=== PATIENT | female | born 1950 | race Caucasian/White ===

== ENCOUNTER 2021-12-16 14:47 | Outpatient (REF) | payer MEDICARE, SELFPAY ==
--- NOTE | 2021-12-16 | PFT_ITS ---
FLOWS: FEV1 116% of predicted at 2.28 L. FVC 111% of predicted at 2.89 L. FEV1 to FVC ratio of 0.79. No bronchodilator response. LUNG VOLUMES: Total lung capacity 109% of predicted at 5.05 L. Residual volume 107% of predicted at 2.21 L. Slow vital capacity 112% of predicted at 2.85 L. Expiratory reserve volume 20% of predicted at 0.11 L. Diffusion capacity is normal. IMPRESSION: No obstructive or restrictive ventilatory defect. No bronchodilator response. Decreased expiratory reserve volume suggests extrathoracic restriction, likely secondary to abdominal obesity. Noam Santana MD AP/MODL / [id number]
== END 2021-12-16 14:48 | disposition home or self-care (01) ==
LOC: HO.RESP 14:47
PROVIDERS: PCP Internal Medicine; Visit Provider Internal Medicine
DX: J98.01 Acute bronchospasm (principal); J68.3 Other acute and subacute respiratory conditions due to chemicals, gases, fumes and vapors; R05.9 Cough, unspecified
CPT/HCPCS: 94060; 94727; 94729; 99202

== ENCOUNTER → 2022-01-13 15:14 | Outpatient (BNVA) | payer MEDICARE, SELFPAY | PROVIDERS: PCP Internal Medicine; Visit Provider Internal Medicine | DX: J68.3 Other acute and subacute respiratory conditions due to chemicals, gases, fumes and vapors (principal); J98.01 Acute bronchospasm | CPT/HCPCS: 99212 ==

== ENCOUNTER 2022-11-13 14:01 | Outpatient (AMB) | payer MEDICARE, SELFPAY ==
--- NOTE | 2022-11-13 14:05 | A.OFFVIS_ITS ---
Intake Vital Signs 11/13/22 14:07 Height 5 ft 1 in Weight 235 lb 14.314 oz BMI 44.6 BP 114/70 Blood Pressure Location Lt radial Pulse 69 Pulse Source Pulse Oximeter Pulse Oximetry (%) 98 Oxygen Delivery Method Room Air Intake Visit Reasons: Sick visit - Cough Fur Glosser Required: No Leather Toggler: Leather Toggler offered & declined Accompanied by: Self / Same As Patient Allergies codeine Allergy (Severe, Verified 11/13/22 14:11) projectial vomiting Medication List - Last Reconciled 11/13/22 by Zabrina Pantoja LPN albuterol sulfate 90 mcg/actuation 2 puffs inhalation Q4-6H PRN apixaban (Eliquis) 5 mg PO BID aspirin (Adult Low Dose Aspirin) 81 mg PO DAILY atorvastatin 10 mg PO DAILY loratadine (Allergy Relief (loratadine)) 10 mg PO DAILY metoprolol tartrate 12.5 mg PO BID HPI Sick visit - Cough HPI Details Madhavi is a very pleasant 72 year old female followed for asthma. She reports ongoing symptoms for the past few years of dry cough that is triggered by talking, laughing or singing as well as environmental allergies. She also reports chest tightness and wheezing with prolonged coughing. She has been using her albuterol up to 4 times per day on a daily basis with significant im provements in symptoms within a few minutes as well as claritin. She also reports being under the care of cardiology, Dr. Moran, for atrial fibrillation which she on eliquis and metoprolol. She denies any chest pain or palpitations. [facility] Medical History Cough due to bronchospasm Reactive airways dysfunction syndrome Social History (Updated 11/13/22 @ 14:13 by Zabrina Pantoja LPN) Patient Tobacco Use Status: Never used Tobacco Review of Systems Const Denies chills, Denies excessive sweating, Denies fever(s), Denies headache(s) and Denies night sweats Eyes Denies dry eyes, Denies irritation and Denies itchy eyes ENT Reports Normal hearing present, Denies headache(s), Denies nasal congestion, Denies nasal discharge and Denies sore throat Card Denies chest pain, Denies chest pain at rest, Denies chest pain with activity, Denies claudication, Denies leg edema, Denies dyspnea, Denies dyspnea on exertion, Denies orthopnea and Denies paroxysmal nocturnal dyspnea Resp Denies chest congestion, Denies excessive phlegm production, Denies pain on inspiration, Denies pain with cough, Denies dyspnea, Denies dyspnea on exertion and Denies stridor Musc Denies myalgias Neuro Reports Normal hearing present and Denies headache(s) Endo Denies excessive sweating John/Lymph Denies lymphadenopathy Aller/Immun Denies itchy eyes and Denies seasonal rhinorrhea Physical Exam Vital Signs: Last Vital Signs Pulse 69 11/13/22 14:07 BP 114/70 11/13/22 14:07 Pulse Ox 98 11/13/22 14:07 Oxygen Delivery Method Room Air 11/13/22 14:07 BMI result Body Mass Index 44.6 Const General: cooperative, healthy appearing, comfortable, no acute distress, well developed and alert Nutritional Appearance: obese Orientation/consciousness: patient oriented x3 Limitations: no limitations HEENT Head: Yes normal to inspection, Yes normocephalic and Yes atraumatic Ears: hearing grossly normal bilaterally and external ears normal Eyes General: appearance normal, both eyes and all related structures Eyelids: Yes eyelids normal Sclerae: sclerae normal EOM: EOMs intact bilaterally Neck Neck: Yes normal visual inspection and Yes no lymphadenopathy Lymphatic: no lymphadenopathy noted Chest Chest palpation & inspection: normal inspection of the chest Resp Other: long expiratory phase with post exhalation cough Effort & Inspection: normal respiratory effort, no audible wheezes, no stridor, not tachypneic, no tripod positioning and no use of accessory muscles Cardio Jugular venous distension: no JVD Rate: regular rate Skin Other: warm, dry General skin exam: no rashes or lesions noted Neuro General: patient oriented x3 Cranial nerves: Yes Normal hearing present Cognition (Neuro): normal cognition Gait exam (Neuro): Normal gait present Extrem General: Yes normal to inspection, Yes capillary refill normal, Yes no clubbing, cyanosis or edema and Yes no pedal edema Psych Appearance: grossly normal and well kempt Speech and movement: Normal speech and movement present and Clear speech present Affect: normal affect Attitude: cooperative Thought process: Normal thought process present Thought content: Normal thought content present Insight: Good insight present (Psych) Judgement: Good judgement present (Psych) Office Procedures Nebulizer Treatment Nebulizer Treatment [id number]/[id number] RX initial, or Nebulizer Subsequent Treatment Office Meds ipratropium-albuterol 0.5 mg-3 mg(2.5 mg base)/3 mL Performing Provider: Dolores Cline NP Administered by: Zabrina Pantoja LPN on 11/13/22 14:42 Dose Route Admin Location Lot Number Expiration Date NDC Answering Service Operator 3 mL inhalation [id number] 03/21/24 [id number] [facility] Assessment & Plan Assessment & Plan (1) Cough due to bronchospasm: Code(s): J98.01 - Acute bronchospasm Plan Madhavi reports ongoing dry cough with intermittent chest tightness and wheezing that has improved with short acting albuterol. Patient coughing throughout visit and post exhalation cough on exam. Coughing resolved with nebulizer treatment. Will empirically trial ICS/LABA. Inhaler technique and oral hygiene reviewed. Advised patient to call office if symptoms are not improving. Since patient with atrial fibrillation, will send in xopenex in place of albuterol. All questions were answered and patient is in agreement of plan. Will follow up with Dr. Brumfield in three months or sooner if needed. Orders: Orders AMB Nebulizer Treatment Today J68.3 - Other acute and subacute respiratory conditions due to chemicals, gases, fumes and vapors, J98.01 - Acute bronchospasm Medications: New fluticasone furoate-vilanterol 100-25 mcg/dose (Breo Ellipta) 1 inh inhalation DAILY 60 ea 3RF levalbuterol tartrate 45 mcg/actuation (Xopenex HFA) 2 puffs inhalation Q4-6H PRN 15 grams 6RF shortness of breath Coding Level of Care Code Est Pt Level 3 (17533) Diagnoses Cough due to bronchospasm J98.01 CPT Codes Nebulizer Treatment - Nebulizer Treatment, initial or subsequent: 19057- Nebulizer/MDI RX initial, or Nebulizer Subsequent Treatment ([id number])
[2022-11-13 14:07] VITALS: BP 114/70; PULSE 69; O2SAT 98; BMI 44.6
== END 2022-11-13 14:54 | disposition home or self-care (01) ==
PROVIDERS: PCP Internal Medicine; Visit Provider Nurse Practitioner Family
DX: J98.01 Acute bronchospasm (principal); J68.3 Other acute and subacute respiratory conditions due to chemicals, gases, fumes and vapors
CPT/HCPCS: 99213

== ENCOUNTER → 2022-11-13 14:01 | Outpatient (BNVA) | payer MEDICARE, SELFPAY | PROVIDERS: PCP Internal Medicine; Visit Provider Nurse Practitioner Family | DX: J98.01 Acute bronchospasm (principal) | CPT/HCPCS: 94640; 99212 ==

== ENCOUNTER 2023-03-03 14:53 | Outpatient (AMB) | payer MEDICARE, SELFPAY ==
--- NOTE | 2023-03-03 15:00 | A.OFFVIS_ITS ---
Intake Vital Signs 03/03/23 15:02 Height 5 ft 1 in Weight 230 lb BMI 43.5 BP 110/60 Blood Pressure Location Lt brachial Position Sitting Pulse 72 Pulse Source Pulse Oximeter Pulse Oximetry (%) 97 Oxygen Delivery Method Room Air Intake Visit Reasons: Cough Intake Note: pt is here for follow up and states that since on Breo and levalbuterol is better but she will cough if she talks too much or perfumes will trigger. Vaccine Key Customer Leader Required: No Allergies codeine Allergy (Severe, Verified 03/03/23 16:26) projectial vomiting Medication List - Last Reconciled 03/03/23 by Jaycob Brumfield MD apixaban (Eliquis) 5 mg PO BID atorvastatin 10 mg PO DAILY flecainide 100 mg PO Q12H fluticasone furoate-vilanterol 100-25 mcg/dose (Breo Ellipta) 1 inh inhalation DAILY levalbuterol tartrate 45 mcg/actuation (Xopenex HFA) 2 puffs inhalation Q4-6H PRN loratadine (Allergy Relief (loratadine)) 10 mg PO DAILY PRN metoprolol tartrate 12.5 mg PO BID Do you need a note to return to daycare/school/sports/work: No HPI Cough HPI Details 72 YEARS OLD VERY PLEASANT FEMALE, COMES TODAY FOR HER ROUTINE FOLLOW- UP. HER PULMONARY FUNCTION TEST HAS BEEN NORMAL. HOWEVER SHE HAS HISTORY OF BOUTS OF COUGH SECONDARY TO HYPERSENSITIVE UPPER AIRWAYS. HER COUGH CAN BE PRECIPITATED BY A VIRAL INFECTION AND ALSO DUE TO INHALATION OFF ANY PERFUMES ARE DUST PARTICLES. SHE WAS SEEN FOR AN ACUTE EXACERBATION OF COUGH BACK IN OCTOBER OF THIS YEAR, AND STARTED ON BREO-100 AND ALSO LEVALBUTEROL P.R.N.. WITH THE USE OF BREO ON A DAILY BASES HER COUGH HAS BEEN DOWN TO MINIMAL. SHE HAS HAD NO ACUTE INFECTION. SHE HAS HAD PAROXYSMAL ATRIAL FIBRILLATION AND IS BEING SCHEDULED FOR ABLATIONS THERAPY. PRIOR TO THAT A CT SCAN OF THE CHEST WAS ORDERED, WHICH WAS PERFORMED AT [facility]. SHE WAS FOUND TO HAVE MULTIPLE PULMONARY NODULES, 5 MM OR LESS IN SIZE. AND SHE HAS BEEN SCHEDULED TO SEE A THORACIC SURGEON [facility], FOR THESE ABNORMALITIES, THE PATIENT WAS THE CONFUSED ABOUT THIS AND DID KNOW WHAT WAS GOING ON. SO I WAS ABLE TO GET THE REPORT OF HER CT SCAN AND EXPLAINED TO HER IN DETAIL. [facility] Medical History (Updated 03/03/23 @ 16:55 by Jaycob Brumfield MD) Pulmonary nodules Reactive airways dysfunction syndrome Cough due to bronchospasm Social History Patient Tobacco Use Status: Never used Tobacco Review of Systems Const All systems reviewed & are unremarkable except as noted in HPI and below Eyes Reports no additional complaints ENT Reports nasal congestion and Reports nasal discharge (Off and on usually in spring season.) Card Denies chest pain and Reports irregular heart rhythm (Periodically) Resp Reports cough GI Reports no additional complaints Reports no additional complaints Musc Reports no additional complaints Skin/Breast Reports system reviewed and no additional complaints, except as documented Neuro Reports no additional complaints Psych Reports no additional complaints Endo Reports no additional complaints Physical Exam Vital Signs: Last Vital Signs Pulse 72 03/03/23 15:02 BP 110/60 03/03/23 15:02 Pulse Ox 97 03/03/23 15:02 Oxygen Delivery Method Room Air 03/03/23 15:02 BMI result Body Mass Index 43.5 Const Other: Grossly overweight, otherwise healthy looking. General: comfortable, no acute distress, alert and awake Orientation/consciousness: patient oriented x3 HEENT Head: Yes normal to inspection General nose exam: No nasal polyps present and No nasal discharge present Face and sinus: Yes sinuses nontender Mouth: oropharynx normal Throat: Yes posterior oropharynx normal Eyes General: appearance normal, both eyes and all related structures Neck Neck: Yes normal visual inspection, Yes no lymphadenopathy, Yes trachea midline and Yes no JVD Thyroid: Thyroid normal Chest Chest palpation & inspection: normal inspection of the chest, normal palpation of entire chest wall and no tenderness Resp Other: Percussion note resonant, breath sounds are slightly distant over the basilar areas. No wheezes rhonchi or crepitations are heard. Cardio Palpation: normal PMI Rate: regular rate Rhythm: regular rhythm Heart sounds: no gallops and no murmurs Peripheral pulses: Peripheral pulses 2+ throughout GI Palpation (GI): Soft to palpation, nontender, No hepatosplenomegaly present and no masses Auscultation: normal bowel sounds Back/Spine/Pelvis Thoracic/Lumbar Spine: thoracic and lumbar spine normal to inspection Skin General skin exam: no rashes or lesions noted Neuro General: patient oriented x3 and no focal motor deficits Cranial nerves: Yes CN's II-XII intact bilaterally Extrem General: Yes normal to inspection, Yes no clubbing, cyanosis or edema and Yes no calf tenderness Psych Appearance: grossly normal and well kempt Speech and movement: Normal speech and movement present Results Reviewed Results Reviewed: CT SCAN OF THE HEART WITH 3D IMAGE AT [facility] ON 01/19/2023 MULTIPLE NONCALCIFIED PULMONARY NODULES WERE DESCRIBED AND A REPEAT THORACIC CT SCAN WAS SUGGESTED Assessment & Plan Assessment & Plan (1) Reactive airways dysfunction syndrome: Comment: REACTIVE AIRWAYS CAUSING BRONCHOSPASM AND COUGH, NOW RELATIVELY UNDER CONTROL WITH THE USE OF BREO. Code(s): J68.3 - Other acute and subacute respiratory conditions due to chemicals, gases, fumes and vapors Plan: CONTINUE BREO 100-251 INHALATION DAILY, MAY USE LEVALBUTEROL 1 OR 2 PUFFS Q 6 HOURS P.R.N. FOR ANY BOUTS OF COUGH OR WHEEZING (2) Cough due to bronchospasm: Comment: IT IS SECONDARY TO REACTIVE AIRWAYS NOTED ABOVE. Code(s): J98.01 - Acute bronchospasm Plan: ABOVE (3) Pulmonary nodules: Comment: CT SCAN OF THE HEART, PICKED UP MULTIPLE PULMONARY NODULES LESS THAN 5 MM IN SIZE. SHE HAS ALREADY BEEN REFERRED TO SEE A THORACIC SURGEON, AND MOST LIKELY SHE NEEDS A HE REGULAR CT SCAN OF THE CHEST. Code(s): R91.8 - Other nonspecific abnormal finding of lung field Plan: ABOVE Coding Level of Care Code Est Pt Level 3 (51049) Diagnoses Reactive airways dysfunction syndrome J68.3 Cough due to bronchospasm J98.01 Pulmonary nodules R91.8
[2023-03-03 15:02] VITALS: BP 110/60; PULSE 72; O2SAT 97; BMI 43.5
== END 2023-03-03 15:49 | disposition home or self-care (01) ==
PROVIDERS: PCP Internal Medicine; Visit Provider Internal Medicine
DX: J68.3 Other acute and subacute respiratory conditions due to chemicals, gases, fumes and vapors (principal); J98.01 Acute bronchospasm; R91.8 Other nonspecific abnormal finding of lung field
CPT/HCPCS: 99213

== ENCOUNTER → 2023-03-03 14:53 | Outpatient (BNVA) | payer MEDICARE, SELFPAY | PROVIDERS: PCP Internal Medicine; Visit Provider Internal Medicine | DX: J68.3 Other acute and subacute respiratory conditions due to chemicals, gases, fumes and vapors (principal); J98.01 Acute bronchospasm; R91.8 Other nonspecific abnormal finding of lung field | CPT/HCPCS: 99212 ==

== ENCOUNTER 2023-05-31 14:28 | Outpatient (AMB) | payer MEDICARE, SELFPAY ==
[2023-05-31 14:32] VITALS: BP 110/62; PULSE 70; O2SAT 97; BMI 41.5
--- NOTE | 2023-05-31 14:32 | MHC.OFFVIS ---
Intake Vital Signs 05/31/23 14:32 Height 5 ft 1 in Weight 219 lb 9.403 oz BMI 41.5 BP 110/62 Blood Pressure Location Rt brachial Position Sitting Pulse 70 Pulse Source Doppler Pulse Oximetry (%) 97 Oxygen Delivery Method Room Air Intake Visit Reasons: Cough Allergies codeine Allergy (Severe, Verified 05/31/23 14:42) projectial vomiting Medication List - Last Reconciled 05/31/23 by Jaycob Brumfield MD albuterol sulfate 90 mcg/actuation 1 inh inhalation QID PRN 30 days apixaban (Eliquis) 5 mg PO BID atorvastatin 10 mg PO DAILY fluticasone furoate-vilanterol 100-25 mcg/dose (Breo Ellipta) 1 inh inhalation DAILY levalbuterol tartrate 45 mcg/actuation (Xopenex HFA) 2 puffs inhalation Q4-6H PRN loratadine (Allergy Relief (loratadine)) 10 mg PO DAILY PRN metoprolol tartrate 12.5 mg PO BID Do you need a note to return to daycare/school/sports/work: No HPI Cough HPI Details Madhavi, 72 years old female is a nonsmoker, she has had cough for the last few years, and is here for follow-up. Since her last visit she was prescribed BREO 100-25 use 1 inhalation daily. This has definitely reduce the amount of cough. But she still gets periods of cough especially if she talks loud or laughs. Then she has to use albuterol 1 inhalation Q 4-6 hours as needed. Because of her paroxysmal atrial fibrillation she was supposed to use levalbuterol, but being back ordered she was not able to get it. She is doing fairly well by using albuterol only 1 puff at a time. Except for intermittent cough she has no other respiratory problem. She can walk at her normal speed. 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 She is also being followed for pulmonary nodules, has not seen any thoracic or other specialist yet. Per recently she did have a CT scan of the chest, of which we do not have the report here. Will try to get it. [facility] Medical History Pulmonary nodules Reactive airways dysfunction syndrome Cough due to bronchospasm Social History Patient Tobacco Use Status: Never used Tobacco Review of Systems Const All systems reviewed & are unremarkable except as noted in HPI and below Eyes Reports no additional complaints ENT Reports nasal congestion and Reports nasal discharge (Off and on usually in spring season.) Card Denies chest pain and Reports irregular heart rhythm (Periodically) Resp Reports cough GI Reports no additional complaints Reports no additional complaints Musc Reports no additional complaints Skin/Breast Reports system reviewed and no additional complaints, except as documented Neuro Reports no additional complaints Psych Reports no additional complaints Endo Reports no additional complaints Physical Exam Vital Signs: Last Vital Signs Pulse 70 05/31/23 14:32 BP 110/62 05/31/23 14:32 Pulse Ox 97 05/31/23 14:32 Oxygen Delivery Method Room Air 05/31/23 14:32 BMI result Body Mass Index 41.5 Const Other: Grossly overweight, otherwise healthy looking. General: comfortable, no acute distress, alert and awake Orientation/consciousness: patient oriented x3 HEENT Head: Yes normal to inspection General nose exam: No nasal polyps present and No nasal discharge present Face and sinus: Yes sinuses nontender Mouth: oropharynx normal Throat: Yes posterior oropharynx normal Eyes General: appearance normal, both eyes and all related structures Neck Neck: Yes normal visual inspection, Yes no lymphadenopathy, Yes trachea midline and Yes no JVD Thyroid: Thyroid normal Chest Chest palpation & inspection: normal inspection of the chest, normal palpation of entire chest wall and no tenderness Resp Other: Percussion note resonant, breath sounds are slightly distant over the basilar areas. No wheezes rhonchi or crepitations are heard. Cardio Palpation: normal PMI Rate: regular rate Rhythm: regular rhythm Heart sounds: no gallops and no murmurs Peripheral pulses: Peripheral pulses 2+ throughout GI Palpation (GI): Soft to palpation, nontender, No hepatosplenomegaly present and no masses Auscultation: normal bowel sounds Back/Spine/Pelvis Thoracic/Lumbar Spine: thoracic and lumbar spine normal to inspection Skin General skin exam: no rashes or lesions noted Neuro General: patient oriented x3 and no focal motor deficits Cranial nerves: Yes CN's II-XII intact bilaterally Extrem General: Yes normal to inspection, Yes no clubbing, cyanosis or edema and Yes no calf tenderness Psych Appearance: grossly normal and well kempt Speech and movement: Normal speech and movement present Assessment & Plan Assessment & Plan (1) Cough due to bronchospasm: Comment: SHE HAS COUGH SECONDARY TO REACTIVE AIRWAYS . IT IS SIGNIFICANTLY IMPROVED WITH THE USE OF BREO ONCE A DAY, BUT NOT COMPLETELY RESOLVED. Code(s): J98.01 - Acute bronchospasm Plan: CHANGE BREO TO 200-251 INHALATION DAILY. CONTINUE TO USE ALBUTEROL HFA 1 PUFF Q 4-6 HOURS P.R.N. FOR PERSISTENT BOUTS OF COUGH. .ALSO USE COUGH DROPS NEEDED (2) Reactive airways dysfunction syndrome: Comment: REACTIVE AIRWAYS CAUSING BRONCHOSPASM AND COUGH, NOW RELATIVELY UNDER CONTROL WITH THE USE OF BREO. Code(s): J68.3 - Other acute and subacute respiratory conditions due to chemicals, gases, fumes and vapors Plan: CONTINUE BREO-201 INHALATION DAILY AND ALBUTEROL HFA 1 OR 2 PUFFS Q 4-6 HOURS P.R.N. (3) Pulmonary nodules: Comment: CT SCAN OF THE HEART, PICKED UP MULTIPLE PULMONARY NODULES LESS THAN 5 MM IN SIZE. SHE HAS NOT SEEN ANY THORACIC SURGEON YET AT [facility]. SHE IS A NONSMOKER SO IS A LOW RISK CASE FOR LUNG CANCER. RECENTLY HAD A CT SCAN OF THE ABDOMEN AND CHEST, ORDERED BY HER [employer] CONSULTANT . SHE WOULD LIKE ME TO REVIEW THE REPORT, AND I WILL TRY TO GET THE REPORT FROM [facility]. Code(s): R91.8 - Other nonspecific abnormal finding of lung field Plan: ABOVE Coding Level of Care Code Est Pt Level 3 (51746) Diagnoses Cough due to bronchospasm J98.01 Reactive airways dysfunction syndrome J68.3 Pulmonary nodules R91.8
== END 2023-05-31 14:54 | disposition home or self-care (01) ==
PROVIDERS: PCP Internal Medicine; Visit Provider Internal Medicine
DX: J98.01 Acute bronchospasm (principal); J68.3 Other acute and subacute respiratory conditions due to chemicals, gases, fumes and vapors; R91.8 Other nonspecific abnormal finding of lung field
CPT/HCPCS: 99213

== ENCOUNTER → 2023-05-31 14:28 | Outpatient (BNVA) | payer MEDICARE, SELFPAY | PROVIDERS: PCP Internal Medicine; Visit Provider Internal Medicine | DX: J98.01 Acute bronchospasm (principal); J68.3 Other acute and subacute respiratory conditions due to chemicals, gases, fumes and vapors; R91.8 Other nonspecific abnormal finding of lung field | CPT/HCPCS: 99212 ==

== ENCOUNTER 2023-12-22 14:19 | Outpatient (AMB) | payer MEDICARE, SELFPAY ==
[2023-12-22 14:28] VITALS: BP 122/68; PULSE 70; O2SAT 96; BMI 42.9
--- NOTE | 2023-12-22 14:28 | MHC.OFFVIS ---
Vital Signs 12/22/23 14:28 Height 5 ft 1 in Weight 227 lb 1.218 oz BMI 42.9 BP 122/68 Blood Pressure Location Lt brachial Position Sitting Pulse 70 Pulse Source Pulse Oximeter Pulse Oximetry (%) 96 Oxygen Delivery Method Room Air Intake Visit Reasons: cough Intake Note: pt is here for follow up and states she is still coughing and wheezing and worse the past few weeks. Family Living Educator Required: No Allergies codeine Allergy (Severe, Verified 12/22/23 14:39) projectial vomiting Medication List - Last Reconciled 12/22/23 by Jaycob Brumfield MD albuterol sulfate 90 mcg/actuation 1 inh inhalation QID PRN 30 days alendronate (Fosamax) 70 mg PO QWEEK atorvastatin 10 mg PO DAILY Breo Ellipta 200-25 mcg/dose (fluticasone furoate-vilanterol) 1 inh inhalation Q24H 30 days NS Do you need a note to return to daycare/school/sports/work: No HPI HPI cough: Details: 73 YEARS OLD VERY PLEASANT FEMALE WHO IS MORBIDLY OBESE, IS HERE FOR FOLLOW-UP FOR HER REACTIVE AIRWAYS DISORDER. WITH THE USE OF BREO 200 -25 HER COUGH WAS DEFINITELY MUCH BETTER. HOWEVER IN JULY OR EARLY AUGUST SHE HAD COVID INFECTION, AND AFTER THAT SHE STARTED HAVING MUCH INCREASED COUGH. SHE NEEDED TO USE BENZONATATE CAPSULES, AND INCREASED THE BREO STRENGTH TO 200-25 NOW A FEW MONTHS LATER HER COUGH IS COMING UNDER CONTROL. SHE STILL NEEDS TO USE ALBUTEROL 1 INHALATION ABOUT 3 TIMES A DAY. THE PATIENT REMAINS GROSSLY OVERWEIGHT THOUGH SHE HAS LOST A FEW LB IN THE LAST 6 MONTHS. SHE IS CLAIMS THAT SHE SLEEPS VERY GOOD THROUGHOUT THE NIGHT WITH AWAKENING ONLY ONE TIME DURING THE NIGHT . THE CARDIOLOGY OFFICE HAS SCHEDULED HER FOR HOME-BASED SLEEP STUDY. [facility] Medical History Pulmonary nodules Reactive airways dysfunction syndrome Cough due to bronchospasm Social History Patient Tobacco Use Status: Never used Tobacco Review of Systems Const All systems reviewed & are unremarkable except as noted in HPI and below Eyes Reports no additional complaints ENT Reports nasal congestion and Reports nasal discharge (Off and on usually in spring season.) Card Denies chest pain and Reports irregular heart rhythm (Periodically) Resp Reports cough GI Reports no additional complaints Reports no additional complaints Musc Reports no additional complaints Skin/Breast Reports system reviewed and no additional complaints, except as documented Neuro Reports no additional complaints Psych Reports no additional complaints Endo Reports no additional complaints Physical Exam Vital Signs: Last Vital Signs Pulse 70 12/22/23 14:28 BP 122/68 12/22/23 14:28 Pulse Ox 96 12/22/23 14:28 Oxygen Delivery Method Room Air 12/22/23 14:28 BMI result Body Mass Index 42.9 Const Other: Grossly overweight, otherwise healthy looking. General: comfortable, no acute distress, alert and awake Orientation/consciousness: patient oriented x3 HEENT Head: Yes normal to inspection General nose exam: No nasal polyps present and No nasal discharge present Face and sinus: Yes sinuses nontender Mouth: oropharynx abnormals (OROPHARYNX IS SOMEWHAT CROWDED, MALLAMPATI CLASS 3) Throat: Yes posterior oropharynx normal Eyes General: appearance normal, both eyes and all related structures Neck Neck: Yes normal visual inspection, Yes no lymphadenopathy, Yes trachea midline and Yes no JVD Thyroid: Thyroid normal Chest Chest palpation & inspection: normal inspection of the chest, normal palpation of entire chest wall and no tenderness Resp Other: Percussion note resonant, breath sounds are slightly distant over the basilar areas. No wheezes rhonchi or crepitations are heard. Cardio Palpation: normal PMI Rate: regular rate Rhythm: regular rhythm Heart sounds: no gallops and no murmurs Peripheral pulses: Peripheral pulses 2+ throughout GI Palpation (GI): Soft to palpation, nontender, No hepatosplenomegaly present and no masses Auscultation: normal bowel sounds Back/Spine/Pelvis Thoracic/Lumbar Spine: thoracic and lumbar spine normal to inspection Skin General skin exam: no rashes or lesions noted Neuro General: patient oriented x3 and no focal motor deficits Cranial nerves: Yes CN's II-XII intact bilaterally Extrem General: Yes normal to inspection, Yes no clubbing, cyanosis or edema and Yes no calf tenderness Psych Appearance: grossly normal and well kempt Speech and movement: Normal speech and movement present Assessment & Plan Assessment & Plan (1) Reactive airways dysfunction syndrome: Comment: REACTIVE AIRWAYS CAUSING BRONCHOSPASM AND COUGH, WITH EXACERBATION OF HER COUGH AFTER COVID INFECTION A FEW MONTHS AGO. Code(s): J68.3 - Other acute and subacute respiratory conditions due to chemicals, gases, fumes and vapors Category: Medical Plan: CONTINUE TO USE BREO 200-251 INHALATION DAILY CONTINUE ALBUTEROL HFA ONLY 1 PUFF Q 4-6 HOURS P.R.N. THERE IS BRONCHOSPASM OR PERSISTENT COUGH. MAY USE COUGH DROPS OFTEN NEEDED. (2) Cough due to bronchospasm: Comment: SHE HAS COUGH SECONDARY TO REACTIVE AIRWAYS . IT IS SIGNIFICANTLY IMPROVED WITH THE USE OF BREO ONCE A DAY, BUT HAS TENDENCY TO FLARE UP, AFTER ANY UPPER RESPIRATORY INFECTION. Code(s): J98.01 - Acute bronchospasm Category: Medical Plan: TREATMENT UNDER REACTIVE AIRWAYS DYSFUNCTION (3) Pulmonary nodules: Comment: CT SCAN OF THE HEART, PICKED UP MULTIPLE PULMONARY NODULES LESS THAN 5 MM IN SIZE. SHE HAS NOT SEEN ANY THORACIC SURGEON YET AT [facility]. SHE IS A NONSMOKER SO IS A LOW RISK CASE FOR LUNG CANCER. RECENTLY HAD A CT SCAN OF THE ABDOMEN AND CHEST, ORDERED BY HER DRY COLOR TESTER . SHE WOULD LIKE ME TO REVIEW THE REPORT, AND I WILL TRY TO GET THE REPORT FROM [facility]. Code(s): R91.8 - Other nonspecific abnormal finding of lung field Category: Medical Plan: SHE DOES HAVE MULTIPLE PULMONARY NODULES BUT ALL BELOW 5 MM IN SIZE. SHE IS A NONSMOKER, SHE HAS ONLY AVERAGE RISK, AND DOES NOT NEED TO HAVE YEARLY SCREENING Coding Level of Care Code Est Pt Level 3 (28892) Diagnoses Reactive airways dysfunction syndrome J68.3 Cough due to bronchospasm J98.01 Pulmonary nodules R91.8
== END 2023-12-22 14:53 | disposition home or self-care (01) ==
PROVIDERS: PCP Internal Medicine; Visit Provider Internal Medicine
DX: J68.3 Other acute and subacute respiratory conditions due to chemicals, gases, fumes and vapors (principal); J98.01 Acute bronchospasm; R91.8 Other nonspecific abnormal finding of lung field
CPT/HCPCS: 99213

== ENCOUNTER → 2023-12-22 14:19 | Outpatient (BNVA) | payer MEDICARE, SELFPAY | PROVIDERS: PCP Internal Medicine; Visit Provider Internal Medicine | DX: J68.3 Other acute and subacute respiratory conditions due to chemicals, gases, fumes and vapors (principal); J98.01 Acute bronchospasm; R91.8 Other nonspecific abnormal finding of lung field | CPT/HCPCS: 99212 ==

== ENCOUNTER 2024-04-25 14:30 | Outpatient (AMB) | payer MEDICARE, SELFPAY ==
--- OUTSIDE RECORDS SUMMARY | 2024-04-25 14:34 | XMS_ITS | Clinical Summary ---
Author Organization [facility] Address [address] [place] [address] Phone Care Team Providers Care Meter Shop Supervisor Name Role Phone Ponce Santos MD Primary Care Provider [phone] Allergies Active Allergy Reactions Criticality Noted Date Comments Codeine 01/30/2008 Hydrocodone-Acetamino phen Medium 11/12/2014 Other Reaction(s): OTHER Room spins excessive dizzyness Naproxen 07/15/2009 Other Reaction(s): OTHER dizzy Oxycodone-Acetaminoph en Nausea And Vomiting 12/17/2004 Oxycodone-Aspirin Nausea And Vomiting 5 Procaine Nausea And Vomiting Medium 05/08/2013 Medications Medication Sig Dispensed Refills Start Date End Date Status albuterol HFA (PROAIR HFA ; PROVENTIL HFA ; VENTOLIN HFA) 90 mcg/actuation inhaler Inhale 2 Puffs into the lungs every 4 hours as needed. Active atorvastatin (LIPITOR) 10 mg tablet Take 1 Tablet by mouth daily. 12/20/2023 Active BIOTIN ORAL Take by mouth daily. Active calcium carbonate-vitamin D3 600 mg-20 mcg (800 unit) tablet Take by mouth daily. Active dilTIAZem CD (CARDIZEM CD) 120 mg 24 hr capsule TAKE ONE CAPSULE BY MOUTH EVERY DAY 01/20/2024 Active fluticasone furoate-vilanteroL (BREO ELLIPTA) 200-25 mcg/dose inhaler Inhale into the lungs. 10/29/2023 Active magnesium oxide (MAG-OX) 400 mg (241.3 elemental magnesium) tablet Take 0.5 Tablets by mouth daily. Active nirmatrelvir-ritonav ir (Paxlovid) 150-100 mg tablet therapy pack Take 1 Package by mouth See Admin Instructions. 11/17/2023 Active vitamin E, dl, acetate, 90 mg (200 unit) capsule 1 tab daily Active ergocalciferol, vitamin D2, (VITAMIN D2 ORAL) VITAMIN D OR: Take by mouth daily. Active zinc gluconate 100 mg tablet Zinc 100 MG Tab: Take by mouth. 10/29/2023 Active alendronate (FOSAMAX) 70 mg tablet Take 1 tablet (70 mg total) by mouth every 7 (seven) days. Take in the morning with a full glass of water, on an empty stomach, and do not take anything else by mouth or lie down for the next 30 min. 12 tablet 03/07/2024 Active Active Problems Problem Noted Date Diagnosed Date COVID 11/16/2023 Overview (02/22/2024): Covid + 11/16/23 Reactive airway disease 04/30/2023 Osteoporosis 10/15/2022 Paroxysmal atrial fibrillation 02/10/2022 Overview (02/22/2024): Paroxysmal atrial fibrillation. Prolonged episodes of poorly tolerated atrial fibrillation. Started on flecainide and diltiazem. Anticoagulated with Eliquis. [id number] score of 2 for female and age. Last Assessment & Plan: Overall Madhavi is doing fairly well with a modest atrial fibrillation burden is markedly reduced by flecainide but not eliminated completely we had a long discussion regarding pros and cons of ablation versus continued medications. She does not want to progress to permanent atrial fibrillation given the aortic stenosis and we ultimately decided to proceed with pulmonary vein isolation using cryoballoon ablation. I did review the procedure with her along with the risks and benefits in detail. We decided to continue with her current medicines. At the time of the ablation I will stop the flecainide and then and during follow-up visits we will decide whether it safe to stop the anticoagulation based on her [id number] score and assessment of whether she is having any atrial fibrillation. Aortic stenosis 08/15/2021 Overview (02/22/2024): Last Assessment & Plan: Stable aortic stenosis moderate by echocardiogram. No symptoms clearly attributable. We will continue to monitor with echocardiography. Mild concentric left ventricular hypertrophy (LV H) 08/15/2021 Hypercholesteremia 07/24/2021 Adenomatous colon polyp 05/08/2013 Obesity 07/07/2007 Lumbago 02/01/2006 Encounters Date Type Department Care Team Description 01/28/2024 Telephone [facility] [address] [place] [address] Maritza Nevarez MA Medicare Annual Wellness Visit Subsequent (AWV DUE after 07/23/2023) from Last 3 Months Immunizations Name Administration Dates Next Due Influenza Quadravalent, MDCK , 0.5ml, with preservative (Flucelvax) 6mo and older 02/05/2017 Influenza trivalent, 0.5mL ( Fluad) 65yo and older 01/11/2021,12/13/2019,12/30/2017,01/19,01/24/2015,01/11/2014,01/12/2013 ,01/13/2012,01/05/2011 Influenza trivalent, 0.5mL, preservative free (Fluarix; FluLaval; Fluzone) ages 6mo and older (Afluria) 3 years and older 01/12/2019 Influenza, Unspecified 01/27/2023,01/11/2021 [employer] SARS-CoV-2 COVID-19, mRNA, LNP-S, preservative free 12/29/2022 Pneumococcal conjugate 13 va lent (Prevnar 13, PCV13) 2mo and older 01/20/2016 Pneumococcal polysaccharide 23 valent (Pneumovax 23) 2yo and older 02/16/2017 TD, Adsorbed, Preservative Free 01/08/2004 Td Tetanus diptheria (Tdvax) 7yo and older 01/08/2004 Tdap Tetanus diptheria acell ular pertussis (Boostrix; Adacel) 7yo and older 10/29/2023,09/15/2010 Zoster Live 02/24/2016 Zoster recombinant (Shingrix ) 19yo and older 12/03/2020,10/01/2020 Surgical History Surgery Date Site/Laterality Comments OTHER SURGICAL HISTORY PROCEDURE: [place] LIG/TRNSXJ FLP TUBE ABDL/VAG APPR UNI/BI APPENDECTOMY 01/25/08 PROCEDURE: LAPAROSCOPIC APPENDECTOMY; COMMENT: [facility], Dr. Trevor Hernandez COLONOSCOPY 01/16/08 PROCEDURE: HISTORICAL COLONOSCOPY; COMMENT: adenoma and tics; repeat in five years COLONOSCOPY 05/08/13 PROCEDURE: [place] COLONOSCOPY STOMA DX INCLUDING COLLJ SPEC SPX; COMMENT: tics; repeat in ten yrs Medical History Medical History Date Comments Lumbago 02/01/2006 DX:Lumbago Personal history of malignan t neoplasm of large intestine DX:Personal history of malig nant neoplasm of large intestine; COMMENT: colon polyp---pt states she never had colon cancer, i couldnt change it to no Osteoporosis 10/15/2022 DX:Osteoporosis History of COVID-19 07/30/2022 DX:History o f COVID-19 Reactive airway disease 04/30/2023 Family History Medical History Relation Name Comments Breast cancer Aunt m CABG Brother 1 Coronary artery disease Brother 1 secondary to sepsis following operation Diabetes Father Other: BRAIN CANCER Other BROTHER OF Colon cancer Neg Hx Relation Name Status Comments Aunt m Brother 1 (Age 64) a nurse, o bsessive compulsive, after CABG Brother 2 Alive 10 yrs younger than pt, they are not close. Brother 3 (Age 44) of br ain tumor. 1994 Father (Age 60s) Parkinson 's, & diabetes 1995 Mother Alive since mid with family deaths, mentally ill Other Social History Tobacco Use Types Packs/Day Years Used Date Smoking Tobacco: Never Smokeless Tobacco: Never Alcohol Use Standard Drinks/Week Comments Yes 0 (1 standard drink = 0.6 oz pur e alcohol) Sex and Gender Information Value Date Recorded Sex Assigned at Not on file Gender Identity Not on file Sexual Orientation Not on file Obstetrics History Last Filed Vital Signs Vital Sign Reading Time Taken Comments Blood Pressure 115/66 10/29/2023 2:33 PM EDT aut o Pulse 73 10/29/2023 2:33 PM EDT Temperature - - Respiratory Rate - - Oxygen Saturation - - Inhaled Oxygen Concentration - - Weight 103 kg (226 lb 3.2 oz) 10/29/2023 2:33 PM EDT Height 154.9 cm (5' 1 ) 10/29/2023 2:33 PM EDT Body Mass Index 42.74 10/29/2023 2:33 PM EDT Plan of Treatment Upcoming Encounters Date Type Department Care Team (Late st Contact Info) Description 04/29/2024 12:30 PM EST Appointment Radiology Department [address] [phone] 05/01/2024 2:30 PM EST Office Visit Internal Medicine - [address] [address] Ponce Santos MD [address] [place] [phone] 09/11/2024 1:30 PM EDT Ancillary Procedure [facility] - [facility] [address] [facility] [address] [place] [address] Health Maintenance Due Date Last Done Comments RSV Immunization Patients 60+ Years Old (1 - Risk 60-74 years 1-dose series) 2010 Depression Screening 02/28/2022 Falls Risk Assessment 02/28/2022 Medicare Annual Wellness Visit 02/28/2022 Social Influencers of Health Screening 02/28/2022 COVID-19 Vaccine ( season) 2023 12/29/2022, 06/24/2021, 01/28/2021, Additional history exists Influenza Vaccine (#1) 2023 , 01/11/2021, 01/11/2021, Additional history exists Breast Cancer Screening 04/03/2025 04/03/19 24, 03/28/2022, 03/27/2021, Additional history exists Colorectal Cancer Screening: Colonoscopy 11/05/2025 11/05/2020 Cholesterol Screening (Lipid Panel) 10/28/2028 10/29/2023, 10/29/2023 Osteoporosis Screening (Bone Density Screening) 10/15/2032 10/15/2022 DTaP,Tdap,and Td Vaccines (4 - Td or Tdap) 10/28/2033 10/29/2023, 09/15/2010, 01/08/2004, Additional history exists Hepatitis C Screening Completed 03/17/2001 Pneumococcal Vaccine: 65+ Years Completed 02/16/2017, 01/20/2016 Zoster Vaccines Completed 12/03/2020, 09/19, 02/24/2016 HIB Vaccines Aged Out No longer eligi ble based on patient's age to complete this topic HPV Vaccines Aged Out No longer eligi ble based on patient's age to complete this topic Hepatitis A Vaccines Aged Out No long er eligible based on patient's age to complete this topic Hepatitis B Vaccines Aged Out No long er eligible based on patient's age to complete this topic IPV Vaccines Aged Out No longer eligi ble based on patient's age to complete this topic MMR Vaccines Aged Out No longer eligi ble based on patient's age to complete this topic Meningococcal ACWY Vaccine Aged Out N o longer eligible based on patient's age to complete this topic RSV Immunization Patients Under 20 months Aged Out No longer eligible based on patient's age to complete this topic Varicella Vaccines Aged Out No longer eligible based on patient's age to complete this topic Procedures Procedure Name Priority Date/Time Associated Diagnosis Comments LIPID PANEL Routine 10/29/2023 SCREENING MAMMOGRAPHY BI 2-VIEW BREAST INC CAD Routine 04/03/2023 1:07 PM EST Encounter for screening mammogram for malignant neoplasm of breast DXA BONE DENSITY STUDY 1+ SITS AXIAL SKEL Routine 10/15/2022 2:37 PM EDT Encounter for screening for osteoporosis COLONOSCOPY Routine 11/05/2020 HEPATITIS C SCREENING Routine 03/17/2001 from Last 3 Months or Most Recently Relevant to Health Maintenance Results * (ABNORMAL) Lipid panel (10/29/2023) LDL/HDL Ratio 2 0 - 4 Triglycerides 144 0 - 150 mg/dL Cholesterol 192 0 - 200 mg/dL HDL 89(A) 40 - 75 mg/dL LDL Cholesterol 75 0 - 100 mg/dL Blood Venous blood specimen / Unknown Historical Provider LAB BLOOD ORDERAB LES * SCREENING MAMMOGRAPHY BI 2-VIEW BREAST INC CAD (04/03/2023 1:07 PM EST) Anatomical Region Laterality Modality Radiographic Dana ging 03/28/2022 12:0 3 PM EST Narrative 04/03/2023 4:43 PM EST This is a summary report. The complete report is available in the patient's medical record. If you cannot access the medical record, please contact the sending organization for a detailed fax or copy. Full field digital screening tomosynthesis mammography, reviewed with CAD and compared to previous. The breasts are composed of fatty and fibroglandular tissue. ??No suspicious mass, architectural distortion or suspicious calcifications are identified. IMPRESSION: : No mammographic evidence of malignancy. BIRADS 1-Negative; N. 5 year breast cancer risk assessment 1.2 % Lifetime breast cancer risk assessment 3.0 % Breast cancer risk category Low (<15%) Procedure Note Karina Brennan MD - 11/08/2023 This is a summary report. The complete report is available in thepatient's medical record. If you cannot access the medical record, pleasecontact the sending organization for a detailed fax or copy. Full field digital screening tomosynthesis mammography, reviewed with CADand compared to previous. The breasts are composed of fatty andfibroglandular tissue. No suspicious mass, architectural distortion orsuspicious calcifications are identified. IMPRESSION: : No mammographic evidence of malignancy. BIRADS 1-Negative; N. 5 year breast cancer risk assessment 1.2 % Lifetime breast cancer risk assessment 3.0 % Breast cancer risk category Low (<15%) Cristina Langley DO IMG XR PROCEDURE S * DXA BONE DENSITY STUDY 1+ SITS AXIAL SKEL (10/15/2022 2:37 PM EDT) Anatomical Region Laterality Modality Bone Densitometr y 07/22/2022 2:41 PM EDT Narrative 10/15/2022 4:29 PM EDT BONE DENSITY SCAN (DEXA): FINDINGS: Lumbar Spine T-score is 0.1. ?? (SD relative to 20-29 y/o adult) Z-score is 2.3. ??(SD relative to age matched peers) This is considered normal by WHO criteria. Left Hip T-score is -2.5. Z-score is -0.6. This is considered osteoporosis by WHO criteria. Comparison exam(s): 02/24/2016. ??No statistically significant change in bone mineral density. IMPRESSION: IMPRESSION: ?? Osteoporosis by WHO criteria. The [facility] Department of Internal Medicine recommends using National Osteoporosis Foundation (NOF) guidelines in treatment decisions related to osteoporosis. NOF guidelines suggest considering treatment for postmenopausal women and men aged 50 or older presenting with the following: History of hip or vertebral fracture. T-score = -2.5 (DXA) at the femoral neck, total hip, or spine, after appropriate evaluation to exclude secondary causes. Low bone mass (T-score between -1.0 and -2.5 at the femoral neck or spine) AND a 10-year probability of a hip fracture = 3% OR a 10-year probability of a major osteoporosis-related fracture = 20% based on the [place]-adapted WHO algorithm Please note that all treatment decisions require clinical judgment and consideration of individual patient factors, including patient preferences, co-morbidities, previous drug use, risk factors not captured in the FRAX model (e.g., frailty, falls, vitamin D deficiency, increased bone turnover, interval significant decline in bone density) and possible under- or over-estimation of fracture risk by FRAX. Optional alternative screening schedule based on juan Muñoz., [facility] April 09, 2011 for patients with osteopenia (based on hip BMD T-score) is as follows: * ??advanced osteopenia (T scores -2.00 to -2.49), BMD testing every year * ??moderate osteopenia (T scores -1.50 to -1.99), BMD testing every 5 years mild osteopenia or normal BMD (T scores -1.50 and higher), BMD testing every 15 years Procedure Note Lo Loredo MD - 04/27/2023 BONE DENSITY SCAN (DEXA): FINDINGS: Lumbar Spine T-score is 0.1. (SD relative to 20-29 y/o adult) Z-score is 2.3. (SD relative to age matched peers) This is considered normal by WHO criteria. Left Hip T-score is -2.5. Z-score is -0.6. This is considered osteoporosis by WHO criteria. Comparison exam(s): 02/24/2016. No statistically significant change inbone mineral density. IMPRESSION: IMPRESSION: Osteoporosis by WHO criteria. The [facility] Department of Internal Medicine recommendsusing National Osteoporosis Foundation (NOF) guidelines in treatment decisions related toosteoporosis. NOF guidelines suggest considering treatment for postmenopausal women and menaged 50 or older presenting with the following: History of hip or vertebral fracture. T-score = -2.5 (DXA) at the femoral neck, total hip, or spine, afterappropriate evaluation to exclude secondary causes. Low bone mass (T-score between -1.0 and -2.5 at the femoral neck or spine)AND a 10-year probability of a hip fracture = 3% OR a 10-year probability of a majorosteoporosis-related fracture = 20% based on the [place]-adapted WHO algorithm Please note that all treatment decisions require clinical judgment andconsideration of individual patient factors, including patient preferences, co- morbidities,previous drug use, risk factors not captured in the FRAX model (e.g., frailty, falls, vitaminD deficiency, increased bone turnover, interval significant decline in bone density) andpossible under- or over-estimation of fracture risk by FRAX. Optional alternative screening schedule based on [facility]oz., [facility] for patients with osteopenia (based on hip BMD T-score) is as follows: * advanced osteopenia (T scores -2.00 to -2.49), BMD testing every year * moderate osteopenia (T scores -1.50 to -1.99), BMD testing every 5years mild osteopenia or normal BMD (T scores -1.50 and higher), BMD testingevery 15 years Kelley Gupta NP IMG DXA PROCEDURES * Colonoscopy (11/05/2020) Colonoscopy Abstracted, No interpretation Anatomical Region Laterality Modality Other Historical Provider MD PAULA Feliciano * Hepatitis C Screening (03/17/2001) Hepatitis C Screening Abstracted Historical Provider MD PAULA Feliciano from Last 3 Months or Most Recently Relevant to Health Maintenance Advance Directives Documents on File Type Date Recorded Patient Coach Builder Expl anation Health Care Decision (hx) 01/19/2023 HE ALTH CARE PROXY Health Care Decision (hx) 01/19/2023 HE ALTH CARE PROXY Health Care Decision (hx) 01/19/2023 HE ALTH CARE PROXY Health Care Decision (hx) 01/19/2023 HE ALTH CARE PROXY Health Care Decision (hx) 01/19/2023 HE ALTH CARE PROXY Health Care Decision (hx) 01/19/2023 HE ALTH CARE PROXY Care Teams Meter Shop Supervisor Relationship Specialty Start Date End Date Ponce Santos MD PCP - General Internal Medicine 04/09/20
[2024-04-25 14:35] VITALS: BP 118/60; PULSE 75; O2SAT 97; BMI 42.7
--- NOTE | 2024-04-25 14:35 | MHC.OFFVIS ---
Vital Signs 04/25/24 14:35 Height 5 ft 1 in Weight 225 lb 15.581 oz BMI 42.7 BP 118/60 Blood Pressure Location Lt brachial Position Sitting Pulse 75 Pulse Source Pulse Oximeter Pulse Oximetry (%) 97 Oxygen Delivery Method Room Air Intake Visit Reasons: Cough Intake Note: pt is here for follow up and states she cough is about the same, cold weather, and bending down, she does have humidifier. 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 SO WHEN SHE IS TALKING SHE GETS MORE FREQUENT BOUTS OF COUGH. SHE ENDS UP USING ALBUTEROL ABOUT ONCE OR TWICE A DAY. SHE CONTINUES TO USE BREO 200-251 INHALATION DAILY. WITHOUT USING BREO SHE CAN NOT EVEN FUNCTION, BECAUSE COUGH GETS MUCH WORSE. IT IS INTERESTING THAT SHE IS A [employer]STILLO SO WHEN SHE SINGS SHE DOES NOT HAVE MUCH COUGH WHEN SHE JUST TALKS. COLD AIR IS A BIG TRIGGER FOR HER. [facility] Medical History Pulmonary nodules Reactive airways dysfunction syndrome Cough due to bronchospasm Social History Patient Tobacco Use Status: Never used Tobacco Review of Systems Const All systems reviewed & are unremarkable except as noted in HPI and below Eyes Reports no additional complaints ENT Reports nasal congestion and Reports nasal discharge (Off and on usually in spring season.) Card Denies chest pain and Reports irregular heart rhythm (Periodically) Resp Reports cough GI Reports no additional complaints Reports no additional complaints Musc Reports no additional complaints Skin/Breast Reports system reviewed and no additional complaints, except as documented Neuro Reports no additional complaints Psych Reports no additional complaints Endo Reports no additional complaints Physical Exam Vital Signs: Last Vital Signs Pulse 75 04/25/24 14:35 BP 118/60 04/25/24 14:35 Pulse Ox 97 04/25/24 14:35 Oxygen Delivery Method Room Air 04/25/24 14:35 BMI result Body Mass Index 42.7 Const Other: Grossly overweight, otherwise healthy looking. General: comfortable, no acute distress, alert and awake Orientation/consciousness: patient oriented x3 HEENT Head: Yes normal to inspection General nose exam: No nasal polyps present and No nasal discharge present Face and sinus: Yes sinuses nontender Mouth: oropharynx abnormals (OROPHARYNX IS SOMEWHAT CROWDED, MALLAMPATI CLASS 3) Throat: Yes posterior oropharynx normal Eyes General: appearance normal, both eyes and all related structures Neck Neck: Yes normal visual inspection, Yes no lymphadenopathy, Yes trachea midline and Yes no JVD Thyroid: Thyroid normal Chest Chest palpation & inspection: normal inspection of the chest, normal palpation of entire chest wall and no tenderness Resp Other: Percussion note resonant, breath sounds are slightly distant over the basilar areas. No wheezes rhonchi or crepitations are heard. Taking deep breaths , forcefully brings on cough. Cardio Palpation: normal PMI Rate: regular rate Rhythm: regular rhythm Heart sounds: no gallops and no murmurs Peripheral pulses: Peripheral pulses 2+ throughout GI Palpation (GI): Soft to palpation, nontender, No hepatosplenomegaly present and no masses Auscultation: normal bowel sounds Back/Spine/Pelvis Thoracic/Lumbar Spine: thoracic and lumbar spine normal to inspection Skin General skin exam: no rashes or lesions noted Neuro General: patient oriented x3 and no focal motor deficits Cranial nerves: Yes CN's II-XII intact bilaterally Extrem General: Yes normal to inspection, Yes no clubbing, cyanosis or edema and Yes no calf tenderness Psych Appearance: grossly normal and well kempt Speech and movement: Normal speech and movement present Assessment & Plan Assessment & Plan (1) Reactive airways dysfunction syndrome: Comment: REACTIVE AIRWAYS CAUSING BRONCHOSPASM AND COUGH, It has become rather chronic. With the use of Breo once a day and albuterol p.r.n. the cough is relatively well controlled. Code(s): J68.3 - Other acute and subacute respiratory conditions due to chemicals, gases, fumes and vapors Category: Medical Plan: Okay to continue using Breo 200-251 inhalation daily And use albuterol HFA 2 puffs Q 6 hours p.r.n. but no more than twice a day. (2) Cough due to bronchospasm: Comment: SHE HAS COUGH SECONDARY TO REACTIVE AIRWAYS . IT IS SIGNIFICANTLY IMPROVED WITH THE USE OF BREO ONCE A DAY, BUT HAS TENDENCY TO FLARE UP, AFTER ANY UPPER RESPIRATORY INFECTION. IF SHE IS OUT OF BREO THAN THE COUGH DEFINITELY GETS WORSE. Code(s): J98.01 - Acute bronchospasm Category: Medical Plan: SEE UNDER REACTIVE AIRWAYS (3) Pulmonary nodules: Comment: CT SCAN OF THE HEART, PICKED UP MULTIPLE PULMONARY NODULES LESS THAN 5 MM IN SIZE. SHE HAS NOT SEEN ANY THORACIC SURGEON YET AT [facility]. SHE IS A NONSMOKER SO IS A LOW RISK CASE FOR LUNG CANCER. Code(s): R91.8 - Other nonspecific abnormal finding of lung field Category: Medical Plan: NO NEED OF ANY FOLLOW-UP SCANS Medications: New fluticasone furoate-vilanterol 200-25 mcg/dose (Breo Ellipta) 1 inh inhalation DAILY 30 days 60 ea 5RF ASTHMATIC COUGH albuterol sulfate 90 mcg/actuation 2 puffs inhalation Q4-6H 30 days PRN 8.5 grams 5RF shortness of breath or wheezing Coding Level of Care Code Est Pt Level 3 (70428) Diagnoses Reactive airways dysfunction syndrome J68.3 Cough due to bronchospasm J98.01 Pulmonary nodules R91.8
== END 2024-04-25 15:02 | disposition home or self-care (01) ==
PROVIDERS: PCP Internal Medicine; Visit Provider Internal Medicine
DX: J68.3 Other acute and subacute respiratory conditions due to chemicals, gases, fumes and vapors (principal); J98.01 Acute bronchospasm; R91.8 Other nonspecific abnormal finding of lung field
CPT/HCPCS: 99213

== ENCOUNTER → 2024-04-25 14:30 | Outpatient (BNVA) | payer MEDICARE, SELFPAY | PROVIDERS: PCP Internal Medicine; Visit Provider Internal Medicine | DX: J68.3 Other acute and subacute respiratory conditions due to chemicals, gases, fumes and vapors (principal); J98.01 Acute bronchospasm; R91.8 Other nonspecific abnormal finding of lung field | CPT/HCPCS: 99212 ==

== ENCOUNTER 2024-10-25 14:27 | Outpatient (AMB) | payer MEDICARE, SELFPAY ==
[2024-10-25 14:43] VITALS: BP 120/64; PULSE 75; O2SAT 97; BMI 41.4
--- NOTE | 2024-10-25 14:43 | MHC.OFFVIS ---
Vital Signs 10/25/24 14:43 Height 5 ft 1 in Weight 219 lb 5.759 oz BMI 41.4 BP 120/64 Blood Pressure Location Lt brachial Position Sitting Pulse 75 Pulse Source Pulse Oximeter Pulse Oximetry (%) 97 Oxygen Delivery Method Room Air Intake Visit Reasons: Cough Intake Note: pt is here for follow up and states she does still have cough, airsupra vs albuterol she would like to discuss. She is on Diltiazem, but we are not sure of strength. 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 HER MAIN ISSUE IS COUGH, PRODUCED BY PHYSICAL ACTIVITY, OR INHALING AIR WITH SOME POLLUTION, ALSO WORSE IN COLD WEATHER OR HOT AND HUMID WEATHER . SHE IS ON BREO 200-25 ,1 INHALATION DAILY, AND USES ALBUTEROL( VENTOLIN) 1 OR 2 PUFFS PRN SHE ALSO FINDS VERY BENEFICIAL TO USE CHLORASEPTIC SPRAY, WHICH NUMB SAYS HER THROAT FOR SHORT PERIOD OF TIME. SO WHENEVER SHE HAS TO GO OUT FOR, TALKING TO CUSTOMERS SHE HAS USED CHLORASEPTIC SPRAY IN PROPHYLAXIS, SHE HAS ALSO NOTICED THAT IF SHE DOES NOT USE BREO HER COUGH GETS MUCH WORSE. NOW SHE HAS WATCHED AND READ THE ADVERTISEMENT FOR AIR SUPRA , SO WANTED TO DISCUSS WHETHER SHE SHOULD USE IT IN PLACE OF VENTOLIN OR NOT. SHE HAS BEEN , ALSO GROSSLY OBESE, AND IS SUCCESSFULLY LOSING WEIGHT BY NATURAL MEANS ( EXERCISE AND DIETING. DOES NOT USE THE CARBS AT ALL 0 PFSH Medical History Pulmonary nodules Reactive airways dysfunction syndrome Cough due to bronchospasm Social History Patient Tobacco Use Status: Never used Tobacco Review of Systems Const All systems reviewed & are unremarkable except as noted in HPI and below Eyes Reports no additional complaints ENT Reports nasal congestion and Reports nasal discharge (Off and on usually in spring season.) Card Denies chest pain and Reports irregular heart rhythm (Periodically) Resp Reports cough GI Reports no additional complaints Reports no additional complaints Musc Reports no additional complaints Skin/Breast Reports system reviewed and no additional complaints, except as documented Neuro Reports no additional complaints Psych Reports no additional complaints Endo Reports no additional complaints Physical Exam Vital Signs: Last Vital Signs Pulse 75 10/25/24 14:43 BP 120/64 10/25/24 14:43 Pulse Ox 97 10/25/24 14:43 Oxygen Delivery Method Room Air 10/25/24 14:43 BMI result Body Mass Index 41.4 Const Other: Grossly overweight, otherwise healthy looking. General: comfortable, no acute distress, alert and awake Orientation/consciousness: patient oriented x3 HEENT Head: Yes normal to inspection General nose exam: No nasal polyps present and No nasal discharge present Face and sinus: Yes sinuses nontender Mouth: oropharynx abnormals (OROPHARYNX IS SOMEWHAT CROWDED, MALLAMPATI CLASS 3) Throat: Yes posterior oropharynx normal Eyes General: appearance normal, both eyes and all related structures Neck Neck: Yes normal visual inspection, Yes no lymphadenopathy, Yes trachea midline and Yes no JVD Thyroid: Thyroid normal Chest Chest palpation & inspection: normal inspection of the chest, normal palpation of entire chest wall and no tenderness Resp Other: Percussion note resonant, breath sounds are slightly distant over the basilar areas. No wheezes rhonchi or crepitations are heard. Taking deep breaths , forcefully brings on coughas usual . Cardio Palpation: normal PMI Rate: regular rate Rhythm: regular rhythm Heart sounds: no gallops and no murmurs Peripheral pulses: Peripheral pulses 2+ throughout GI Palpation (GI): Soft to palpation, nontender, No hepatosplenomegaly present and no masses Auscultation: normal bowel sounds Back/Spine/Pelvis Thoracic/Lumbar Spine: thoracic and lumbar spine normal to inspection Skin General skin exam: no rashes or lesions noted Neuro General: patient oriented x3 and no focal motor deficits Cranial nerves: Yes CN's II-XII intact bilaterally Extrem General: Yes normal to inspection, Yes no clubbing, cyanosis or edema and Yes no calf tenderness Psych Appearance: grossly normal and well kempt Speech and movement: Normal speech and movement present Assessment & Plan Assessment & Plan (1) Reactive airways dysfunction syndrome: Comment: REACTIVE AIRWAYS CAUSING BRONCHOSPASM AND COUGH, It has become rather chronic. With the use of Breo once a day and albuterol p.r.n. the cough is relatively well controlled. In addition she finds that using Chlora septic spray to numb her throat also reduces the cough. Code(s): J68.3 - Other acute and subacute respiratory conditions due to chemicals, gases, fumes and vapors Category: Medical Plan: Advised to continue using Breo 200-251 inhalation daily. Use Ventolin 2 puffs Q 4-6 hours p.r.n. especially before she has to have some conversation with the clients. It is also OK to use Chloraseptic spray for temporary relief. * as for as using Air Supra ( budesonide plus albuterol ) I explained to her that Breo has a component which is steroid and air supra also has an it gradient which is steroid.. So if she would like to try using air supra then we will stop Breo. And Ventolin. After listening to this educational piece, she decided not to pursue using Air Supra at this time . Because she is afraid to stop Breo. (2) Cough due to bronchospasm: Comment: SHE HAS COUGH SECONDARY TO REACTIVE AIRWAYS . IT IS SIGNIFICANTLY IMPROVED WITH THE USE OF BREO ONCE A DAY, BUT HAS TENDENCY TO FLARE UP, AFTER ANY UPPER RESPIRATORY INFECTION. IF SHE IS OUT OF BREO THEN THE COUGH DEFINITELY GETS WORSE. Code(s): J98.01 - Acute bronchospasm Category: Medical Plan: Has under reactive airway disorder. (3) Pulmonary nodules: Comment: CT SCAN OF THE HEART, PICKED UP MULTIPLE PULMONARY NODULES LESS THAN 5 MM IN SIZE. SHE HAS NOT SEEN ANY THORACIC SURGEON YET AT [facility]. SHE IS A NONSMOKER SO IS A LOW RISK CASE FOR LUNG CANCER. Code(s): R91.8 - Other nonspecific abnormal finding of lung field Category: Medical Plan: Is no need of active surveillance in her case Coding Level of Care Code Est Pt Level 3 (97315) Diagnoses Reactive airways dysfunction syndrome J68.3 Cough due to bronchospasm J98.01 Pulmonary nodules R91.8
--- OUTSIDE RECORDS SUMMARY | 2024-10-25 14:55 | XMS_ITS | Clinical Summary ---
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 Active BIOTIN ORAL Take by mouth daily. Active calcium carbonate-vitam in D3 600 mg-20 mcg (800 unit) tablet Take by mouth daily. Active dilTIAZem CD (CARDIZEM CD) 120 mg 24 hr capsule TAKE ONE CAPSULE BY MOUTH EVERY DAY 01/20/2024 Active magnesium oxide (MAG-OX) 400 mg (241.3 elemental magnesium) tablet Take 0.5 Tablets by mouth daily. Active nirmatrelvir-ri tonavir (Paxlovid) 150-100 mg tablet therapy pack Take 1 Package by mouth See Admin Instructions. 11/17/2023 Active vitamin E, dl, acetate, 90 mg (200 unit) capsule 1 tab daily Active ergocalciferol, vitamin D2, (VITAMIN D2 ORAL) VITAMIN D OR: Take by mouth daily. Active zinc gluconate 100 mg tablet Zinc 100 MG Tab: Take by mouth. 10/29/2023 Active Breo Ellipta 100-25 mcg/dose inhaler Inhale 1 puff by mouth 1 (one) time each day. 07/10/2023 Active alendronate (FOSAMAX) 70 mg tablet Take 1 tablet by mouth every 7 days, take in the morning with a full glass of water on an empty stomach Do not consume anything or lie down for the next 30 minutes. 12 tablet 08/21/2024 Active atorvastatin (LIPITOR) 10 mg tablet TAKE ONE TABLET BY MOUTH EVERY DAY 90 tablet 1 09/12/2024 Active Hospital, Clinic, or Other Facility Administered Medication Ordered Dose Route Frequency Start Date End Date Status perflutren lipid microsphere (DEFINITY) 0.39 mL in sodium chloride 0.9% 2.61 mL injectionIndications:Nonrhe umatic aortic (valve) stenosis 3 mL IV Once 09/27/2024 09/27/2024 Ended Active Problems Problem Noted Date Diagnosed Date COVID 11/16/2023 Overview (02/22/2024): Covid + 11/16/23 Reactive airway disease 04/30/2023 Osteoporosis 10/15/2022 Paroxysmal atrial fibrillation (CMS/HCC V24, CMS /HCC V28) 02/10/2022 Overview (02/22/2024): Paroxysmal atrial fibrillation. Prolonged episodes of poorly tolerated atrial fibrillation. Started on flecainide and diltiazem. Anticoagulated with Eliquis. [id number] score of 2 for female and age. Last Assessment & Plan: Overall Romelia is doing fairly well with a modest [...] to stop the anticoagulation based on her [id number] score and assessment of whether she is having any atrial fibrillation. Aortic stenosis 08/15/2021 Overview (02/22/2024): Last Assessment & Plan: Stable aortic stenosis moderate by echocardiogram. No symptoms clearly attributable. We will continue to monitor with echocardiography. Mild concentric left ventricular hypertrophy (LV H) 08/15/2021 Hypercholesteremia 07/24/2021 Adenomatous colon polyp 05/08/2013 Obesity 07/07/2007 Lumbago 02/01/2006 Encounters Date Type Department Care Team Description 09/27/2024 10:00 AM EDT Ancillary Procedure [facility] - [address] [place] [address] Nonrheumatic aortic (valve) stenosis 08/21/2024 11:30 AM EDT Office Visit [facility] [address] [place] [id number] Ponce Santos MD Paroxysmal atrial fibrillation (CMS/HCC V24, CMS/HCC V28) (Primary Dx); Hypercholesteremia; Age related osteoporosis, unspecified pathological fracture presence from Last 3 Months Immunizations Name Administration Dates Next Due Influenza Quadravalent, MDCK , 0.5ml, with preservative (Flucelvax) 6mo and older 02/05/2017 Influenza trivalent, 0.5mL ( Fluad) 65yo and older 01/11/2021,12/13/2019,12/30/2017,01/19,01/24/2015,01/11/2014,01/12/2013 ,01/13/2012,01/05/2011 Influenza trivalent, 0.5mL, preservative free (Fluarix; FluLaval; Fluzone) ages 6mo and older (Afluria) 3 years and older 01/12/2019 Influenza, Unspecified 01/27/2023,01/11/2021 FirstBest SARS-CoV-2 COVID-19, mRNA, LNP-S, preservative free 12/29/2022 [...] Date Site/Laterality Comments OTHER SURGICAL HISTORY PROCEDURE: CT LIG/TRNSXJ FLP TUBE ABDL/VAG APPR UNI/BI APPENDECTOMY 01/25/08 PROCEDURE: LAPAROSCOPIC APPENDECTOMY; COMMENT: [facility], Dr. Trevor Hernandez COLONOSCOPY 01/16/08 PROCEDURE: HISTORICAL COLONOSCOPY; COMMENT: adenoma and tics; repeat in five years COLONOSCOPY 05/08/13 PROCEDURE: CT COLONOSCOPY STOMA DX INCLUDING COLLJ SPEC SPX; [...] Date Smoking Tobacco: Never Smokeless Tobacco: Never Tobacco Cessation:Counseling Given: Not Answered Alcohol Use Standard Drinks/Week Comments Yes 0 (1 standard drink = 0.6 oz pur e alcohol) Housing Instability Answer Date Recorde d Are you worried that in the next 2 months you may not have stable housing? No 04/25/2024 Food Access & Nutrition Answer Date Rec orded Do you have access to a vari ety of food including fruits and vegetables? Yes 04/25/2024 Access to Healthcare Answer Date Record ed Within the last 3 months, ho w many times did you visit the emergency department for your medical care? 0 04/25/2024 Health Literacy Answer Date Recorded How often do you need to hav e someone help you when you read instructions, pamphlets, or other written material from your doctor or pharmacy? Never 04/25/2024 Caregiver: How often do you need to have someone help you when you read instructions, pamphlets, or other written material from your doctor or pharmacy? Not on file 04/25/2024 Financial Risk Answer Date Recorded How hard is it for you to pa y for the very basics like food, housing, medical care, and air conditioning / heating? Not very hard 04/25/2024 Transportation Answer Date Recorded Has the lack of transportati on kept you from meetings, work, or from getting things needed for daily living? No Has the lack of transportati on kept you from medical appointments or from getting medications? No 04/25/2024 Social Isolation Answer Date Recorded How often do you feel lonely or isolated from th ose around you? Rarely 04/25/2024 Food Risk Answer Date Recorded Within the past 12 months we worried whether our food would run out before we got money to buy more. Never true 04/25/2024 Within the past 12 months th e food we bought just didn't last and we didn't have money to get more. Never true 04/25/2024 Dependent Care Answer Date Recorded Do you need help finding or paying for care for your loved ones. For example, child welfare social worker or elderly care for an older adult? No 04/25/2024 Education Answer Date Recorded Do you think completing more education or training, like finishing a GED, going to college, or learning a trade, would be helpful for you? N/A 04/25/2024 Employment and Income Answer Date Recor ded During the last four weeks, have you been actively looking for work? No 04/25/2024 Living Situation Answer Date Recorded What is your living situation? 0 04/25/2024 Comments No Sex and Gender Information Value Date Recorded Sex Assigned at Not on file Legal Sex Female 8:30 PM EST Gender Identity Not on file Sexual Orientation Not on file Travel History Travel Start Travel End [facility] 08/28/2024 09/27/2024 Obstetrics History Para Term AB IAB SAB Ectopic Multiple Livin g Live Births 1 Date Outcome GA Total Labor Labor/2nd/3rd Weight Sex Type Anes PTL Joya A1 A5 Name Clin Term Last Filed Vital Signs Vital Sign Reading Time Taken Comments Blood Pressure 131/76 09/27/2024 10:53 AM EDT Pulse 72 08/21/2024 11:28 AM EDT Temperature - - Respiratory Rate - - Oxygen Saturation - - Inhaled Oxygen Concentration - - Weight 99.8 kg (220 lb) 09/27/2024 10:53 AM EDT Height 154.9 cm (5' 1 ) 09/27/2024 10:53 AM EDT Body Mass Index 41.57 09/27/2024 10:53 AM EDT Plan of Treatment Upcoming Encounters Date Type Department Care Team (Late st Contact Info) Description 11/21/2024 9:00 AM EDT Office Visit [facility] - [facility] [address] [facility] [address] [place] [address] Denny Moran MD [address] [facility] [address] [place] [address] 07/31/2025 2:00 PM EDT Appointment Radiology Department - [address] [address] Health Maintenance Due Date Last Done Comments RSV Immunization Adult Patients (1 - Risk 60-74 years 1-dose series) 2010 Influenza Vaccine (#1) 2024 , 01/27/2023, 12/25/2022, Additional history exists COVID-19 Vaccine ( season) 2025 09/04/2024, 09/03/2023, 12/29/2022, Additional history exists Social Influencers of Health Screening 04/25/2025 04/25/2024 Falls Risk Assessment 08/21/2025 08/21/2024 Medicare Annual Wellness Visit 08/21/2025 08/21/2024 Colorectal Cancer Screening: Colonoscopy 11/05/2025 11/05/2020 Breast Cancer Screening 04/29/2026 04/29/19, 04/03/2023, 03/28/2022, Additional history exists Cholesterol Screening (Lipid Panel) 05/01/2029 05/01/2024, 10/29/2023, 10/29/2023 Osteoporosis Screening (Bone Density Screening) 10/15/2032 10/15/2022 DTaP,Tdap,and Td Vaccines (4 - Td or Tdap) 10/28/2033 10/29/2023, 09/15/2010, 01/08/2004, Additional history exists Hepatitis C Screening Completed 03/17/2001 Pneumococcal Vaccine: 50+ Years Completed 02/16/2017, 01/20/2016 Zoster Vaccines Completed 12/03/2020, 09/19, 02/24/2016 Depression Screening Completed 08/14/2024 HIB Vaccines Aged Out No longer eligi [...] patient's age to complete this topic Meningococcal B Vaccine Aged Out No l onger eligible based on patient's age to complete this topic RSV Immunization Patients Under 20 months Aged Out No longer eligible based on patient's age to complete this topic Varicella Vaccines Aged Out No longer eligible based on patient's age to complete this topic Procedures Procedure Name Priority Date/Time Associated Diagnosis Comments TRANSTHORACIC ECHOCARDIOGRAM (TTE) COMPLETE W/ CONTRAST Routine 09/27/2024 10:54 AM EDT Nonrheumatic aortic (valve) stenosis LIPID PANEL WITH REFLEX TO DIRECT LDL Routine 05/01/2024 2:57 PM EST Hypercholesteremia MG MAMMO DIGITAL SCREENING W DICKSON BILAT Routine 04/29/2024 12:32 PM EST Encounter for screening mammogram for breast cancer DXA BONE DENSITY STUDY 1+ SITS AXIAL SKEL Routine 10/15/2022 2:37 PM EDT Encounter for screening for osteoporosis COLONOSCOPY Routine 11/05/2020 HEPATITIS C SCREENING Routine 03/17/2001 from Last 3 Months or Most Recently Relevant to Health Maintenance Results * (ABNORMAL) TRANSTHORACIC ECHOCARDIOGRAM (TTE) COMPLETE W/ CONTRAST (09/27/2024 10:54 AM EDT) Left Atrium Minor Falconer 5.9 cm CV PACS Left Atrium Major Falconer 5.4 cm CV PACS LA Area Sys (A2C) 23 cm2 CV PACS LA Area Sys (A4C) 23 cm2 CV PACS LA Volume (BP) 75 mL CV PACS RA Area 17.3 cm2 CV PACS RA 2D Volume 48 mL CV PACS AV Mean Gradient 28 mmHg CV PACS Ao VTI 73.2 cm CV PACS AV Peak Rick 3.6 m/s CV PACS AV Peak Gradient 51 mmHg CV PACS AV Area Continuity Equation 1.1 cm2 CV PACS AV Area Peak Velocity 1.1 cm2 CV PACS Aortic Sinus Valsalva 2.9 cm CV PACS Ascending Aorta 3.6 cm CV PACS IVC Proximal 1.1 cm CV PACS IVSD 1.4(A) 0.6 - 0.9 cm CV PACS LVIDD 3.1(A) 3.8 - 5.2 cm CV PACS LVIDS 1.8(A) 2.2 - 3.5 cm CV PACS LVOT Diameter 2.0 cm CV PACS LVOT Mean Grad 3 mmHg CV PACS LVOT Peak VTI 25.6 cm CV PACS LVOT Mean Rick 0.8 m/s CV PACS LVOT Peak Rick 1.2 m/s CV PACS LVOT Peak Gradient 6 mmHg CV PACS LVPWD 1.4(A) 0.6 - 0.9 cm CV PACS MV E' Tissue Velocity Lateral 5 cm/s CV PACS MV E' Tissue Velocity Septal 7 cm/s CV PACS LVOT Area 3.1 cm2 CV PACS LVOT Stroke Volume 80 mL CV PACS E Wave Deceleration Time 282(A) 119 - 242 ms CV PACS MV Peak A Rick 1.08 m/s CV PACS MV Peak E Rick 1.06 m/s CV PACS PV Peak Velocity 0.8 m/s CV PACS PV Peak Gradient 3 mmHg CV PACS RV Diastolic Basal Dimension 3.8 2.5 - 4.1 cm CV PACS RV S' 19 cm/s CV PACS TAPSE 33 mm CV PACS E/E' Ratio Septal 15 CV PACS E/E' Ratio Averaged 18 CV PACS Relative Wall Thickness ratio 0.90 CV PACS LVOT:AV VTI Index 0.35 CV PACS FS 42 % CV PACS LV Mass 2D 147 g CV PACS LVOT flow 251 mL/s CV PACS AV Velocity Ratio 0.33 CV PACS E/A Ratio 1.0 CV PACS E/E' Ratio Lateral 21 CV PACS BSA 2.07 m2 CV PACS LA Volume Index (BP) 38 mL/m2 CV PACS LVIDD Index 1.57 cm/m2 CV PACS LVIDS Index 0.91 cm/m2 CV PACS LV Mass Index 2D 74 44 - 88 g/m2 CV PACS LVOT Stroke Index 41 mL/m2 CV PACS RA 2D Volume Index 24 15 - 27 mL/m2 CV PACS SUSANNA Index (VTI) 0.56 cm2/m2 CV PACS SUSANNA Index (Pk Rick) 0.56 cm2/m2 CV PACS Ascending Aorta Index 1.83 cm/m2 CV PACS AV LVOT Mid Gradient 26 mmHg CV PACS Est. RA Pressure 3 mmHg CV PACS Anatomical Region Laterality Modality Ultrasound Narrative 09/28/2024 10:50 AM EDT Left ventricle cavity size is normal. There is moderate hypertrophy. Systolic function is normal with an ejection fraction of 65-70%. There are no regional LV wall motion abnormalities. There is Grade II (moderate) diastolic dysfunction. Right ventricle cavity is normal. Right ventricular systolic function is normal. Left atrium volume index is mildly increased. There is moderate stenosis. The aortic valve peak velocity is 3.6 m/s. The mean gradient is 28 mmHg. There was dynamic mid-LV gradient of 26 mmHg upon Valsalva. There is trace regurgitation. There is no significant change of aortic valve gradient or aortic valve stenosis compared to previous study of 08/25/2023. Left Ventricle Left ventricle cavity size is normal. There is moderate hypertrophy. Systolic function is normal with an ejection fraction of 65-70%. There are no regional LV wall motion abnormalities. There is Grade II (moderate) diastolic dysfunction. Right Ventricle Right ventricle cavity appears normal. Systolic function is normal. Left Atrium Left atrium volume index is mildly increased. Right Atrium Right atrium cavity is normal. IVC/SVC RA pressures is estimated to be 3 mmHg (IVC diameter <21 mm and decreases >50% during inspiration). Mitral Valve The leaflets are mildly thickened. There is moderate annular calcification. There is trace regurgitation. There is no evidence of mitral valve stenosis. Tricuspid Valve The leaflets exhibit normal excursion. There is trace regurgitation. There is no evidence of tricuspid valve stenosis. Cannot assess RVSP. Aortic Valve Number of aortic valve cusps cannot be determined. The leaflets are moderately calcified. There is trace regurgitation. There is moderate stenosis. The aortic valve peak velocity is 3.6 m/s. The mean gradient is 28 mmHg. There was dynamic mid-LV gradient of 26 mmHg upon Valsalva. Pulmonic Valve The pulmonic valve was not well visualized. There is trace pulmonic valve regurgitation. There is no evidence of pulmonic valve stenosis. Ascending Aorta The aorta appears normal in size. Pericardium There is an fat pad. Study Details Overall the study quality was technically difficult. Definity contrast was given to enhance imaging. Study was difficult due to: poor endocardial visualization and patient body habitus. us Re Wang NP CV ECHO PROCEDURES Final Res ult * Lipid panel with reflex to direct LDL (05/01/2024 2:57 PM EST) Cholesterol 195 0 - 200 mg/dL LAB CHEMISTRY METHOD 05/01/2024 7:[address] [facility] Triglycerides 88 0 - 150 mg/dL LAB CHEMISTRY METHOD 05/01/2024 7:17 PM [facility] HDL 99 >=40 mg/dL LAB CHEMISTRY METHOD 05/01/2024 7:[address] [facility] LDL Calculated 78 0 - 100 mg/dL LAB CHEMISTRY METHOD 05/01/2024 7:17 PM [facility] VLDL Cholesterol Rajinder 17.6 mg/dL LAB CHEMISTRY METHOD 05/01/2024 7:17 PM [facility] Non HDL Chol. (LDL+VLDL) 96 <145 mg/dL LAB CHEMISTRY METHOD 05/01/2024 7:17 PM [facility] Chol/HDL Ratio 2.0 0.0 - 4.4 LAB CHEMISTRY METHOD 05/01/2024 7:[address] [facility] Blood Venous blood specimen / Unknown Venipuncture / Unknown 05/01/2024 2:57 PM EST 05/01/2024 2:57 PM EST us Ponce Santos MD LAB BLOOD ORDERABLES Final Res ult [facility] [address] [place] [address], [place] [phone] * MG Mammo Digital Screening w Dickson bilat (04/29/2024 12:32 PM EST) Anatomical Region Laterality Modality Breast Bilateral Mammography 05/01/2024 5:24 PM EST Impressions 05/01/2024 5:29 PM EST 1. No mammographic evidence of malignancy 2. Scattered fibroglandular tissue BI-RADS CATEGORY: 2 - BENIGN RECOMMENDATION: Screening bilateral mammogram is recommended in 1 year. Mammo Location: [facility], [address] [place] [address], [id number], . -------- FINAL REPORT -------- Dictated By: Zuly Holm Dictated Date: 05/01/2024 17:24 ET Assigned Physician: Zuly Holm Reviewed and Electronically Signed By: Zuly Holm Signed Date: 05/01/2024 17:29 ET Workstation ID: [id number] Transcribed By: Self Edit Transcribed Date: 05/01/2024 17:24 ET Narrative 05/01/2024 5:29 PM EST A BILATERAL DIGITAL 3D SCREENING MAMMOGRAPHY HISTORY: Routine screening. Family history of breast cancer in aunt COMPARISON: Multiple priors dating back to 03/12/2020 Technique: Bilateral full field digital mammography (3D) was performed using standard CC and MLO projections , right breast exaggerated CC CAD was used to evaluate this mammogram. FINDINGS: Right: No suspicious masses, groups of microcalcification or areas of architectural distortion identified. Stable typically benign parenchymal asymmetries. Left: No suspicious masses, groups of microcalcification or areas of architectural distortion identified. Stable typically benign parenchymal asymmetries. BREAST DENSITY: B - There are scattered areas of fibroglandular density. Procedure Note Zuly Holm MD - 05/01/2024 A BILATERAL DIGITAL 3D SCREENING MAMMOGRAPHY HISTORY: Routine screening. Family history of breast cancer in aunt COMPARISON: Multiple priors dating back to 03/12/2020 Technique: Bilateral full field digital mammography (3D) was performedusing standard CC and MLO projections , right breast exaggerated CC CAD was used to evaluate this mammogram. FINDINGS: Right: No suspicious masses, groups of microcalcification or areas ofarchitectural distortion identified. Stable typically benign parenchymalasymmetries. Left: No suspicious masses, groups of microcalcification or areas ofarchitectural distortion identified. Stable typically benign parenchymalasymmetries. BREAST DENSITY: B - There are scattered areas of fibroglandular density. IMPRESSION: 1. No mammographic evidence of malignancy 2. Scattered fibroglandular tissue BI-RADS CATEGORY: 2 - BENIGN RECOMMENDATION: Screening bilateral mammogram is recommended in 1 year. Mammo Location: [facility], [address] [place] [address], [id number], . -------- FINAL REPORT -------- Dictated By: Zuly Holm Dictated Date: 05/01/2024 17:24 ET Assigned Physician: Zuly Holm Reviewed and Electronically Signed By: Zuly Holm Signed Date: 05/01/2024 17:29 ET Workstation ID: [id number] Transcribed By: Self Edit Transcribed Date: 05/01/2024 17:24 ET us Self Referral [facility] IMG BI PROCEDURES Final Resu lt * DXA BONE DENSITY STUDY 1+ SITS [...] Comparison exam(s): 02/24/2016. No statistically significant change in bone mineral density. IMPRESSION: IMPRESSION: Osteoporosis by WHO criteria. The [facility] Department of Internal Medicine recommends using National [...] alternative screening schedule based on juan Muñoz., [facility] April 09, 2011 for patients with osteopenia (based on hip BMD T-score) is as follows: * advanced osteopenia (T scores -2.00 to -2.49), BMD testing every year * moderate osteopenia (T scores -1.50 to -1.99), BMD testing every 5 years mild osteopenia or normal BMD (T scores -1.50 and higher), BMD testing every 15 years Procedure Note oL Loredo MD - 04/27/2023 BONE DENSITY SCAN [...] IMPRESSION: IMPRESSION: Osteoporosis by WHO criteria. The [facility] Department of Internal Medicine recommendsusing National Osteoporosis [...] FRAX. Optional alternative screening schedule based on ju Muñoz al., NEJMJanuary 2011 for patients with osteopenia (based on hip BMD T-score) is as follows: * advanced osteopenia (T scores -2.00 to -2.49), BMD testing every year * moderate osteopenia (T scores -1.50 to -1.99), BMD testing every 5years mild osteopenia or normal BMD (T scores -1.50 and higher), BMD testingevery 15 years Kelley Gupta NP IMG DXA PROCEDURES Final Resul t * Colonoscopy (11/05/2020) [facility] Colonoscopy Abstracted, No interpretation Anatomical Region Laterality Modality Other Historical Provider HEALTH MAINTENANCE Final Result * Hepatitis C Screening (03/17/2001) [facility] Hepatitis C Screening Abstracted Historical Provider HEALTH MAINTENANCE Final Result from Last 3 Months or Most Recently Relevant to Health Maintenance Insurance [employer] Advance Directives Documents on File Type Date Recorded 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
== END 2024-10-25 15:31 | disposition home or self-care (01) ==
LOC: HO.HPS 14:28
PROVIDERS: PCP Internal Medicine; Visit Provider Internal Medicine
DX: J68.3 Other acute and subacute respiratory conditions due to chemicals, gases, fumes and vapors (principal); J98.01 Acute bronchospasm; R91.8 Other nonspecific abnormal finding of lung field
CPT/HCPCS: 99213

== ENCOUNTER → 2024-10-25 14:27 | Outpatient (BNVA) | payer MEDICARE, SELFPAY | PROVIDERS: PCP Internal Medicine; Visit Provider Internal Medicine | DX: J68.3 Other acute and subacute respiratory conditions due to chemicals, gases, fumes and vapors (principal); J98.01 Acute bronchospasm; R91.8 Other nonspecific abnormal finding of lung field; Z79.899 Other long term (current) drug therapy | CPT/HCPCS: 99212 ==